=== PATIENT | female | born 1980 | race Caucasian/White ===

== ENCOUNTER 2018-01-21 09:55 | Day surgery (SDC) | payer BC ==
[~2018-01-21] VITALS: Ht 157.5 cm; Wt 70.3 kg
[~2018-01-21 09:55] MED LIST: FLEXERIL 1010 MG/TAB PO; MOTRIN 600600 MG/TAB PO; PERCOCET 325 MG1 TA2 PO; PREDNISONE20 MG PO; PRENATAL MVI PO; TUMS E-X750 MG PO
[2018-01-21 10:14] VITALS: BP 112/62; PULSE 71; TEMP 98.3
[2018-01-21] MEDS ORDERED: PROBIOTIC FORMU1 CAP PO (10:19)
[2018-01-21 11:45] VITALS: BP 97/56; PULSE 85
[2018-01-21 12:00] VITALS: BP 94/61; PULSE 69
[2018-01-21 12:15] VITALS: BP 99/58; PULSE 78
[2018-01-21 13:09] VITALS: BP 94/48; PULSE 80
== END 2018-01-21 12:25 | disposition home or self-care (01) ==
LOC: SDCO 09:55
DX: Z12.11 Encounter for screening for malignant neoplasm of colon (principal); R19.7 Diarrhea, unspecified; K21.9 Gastro-esophageal reflux disease without esophagitis; Z80.0 Family history of malignant neoplasm of digestive organs
CPT/HCPCS: J2250; J3010; J7030

== ENCOUNTER → 2019-10-04 | Outpatient (CLI) | payer BC ==
[~2019-10-04] MED LIST changes: +PROBIOTIC FORMU1 CAP PO
== END ==
LOC: MC.RAD 13:48
DX: N64.4 Mastodynia (principal)
CPT/HCPCS: G0279

== ENCOUNTER → 2020-10-31 | Outpatient (CLI) | payer BC | LOC: MC.RAD 15:50 | DX: Z12.31 Encounter for screening mammogram for malignant neoplasm of breast (principal) ==

== ENCOUNTER → 2021-11-28 | Outpatient (CLI) | payer BC | LOC: MC.RAD 13:54 | DX: Z12.31 Encounter for screening mammogram for malignant neoplasm of breast (principal) ==

== ENCOUNTER → 2024-03-17 | Outpatient (CLI) | payer OTHER ==
[~2024-03-17] MED LIST changes: +QUERCETIN500 M1 PO; +VITAMIN B COMPL1 SGL PO; +VITAMIN D31000 I1 PO; +VITAMINC1000TA PO; +ZYRTEC 10MG10 MG PO
== END ==
LOC: MC.RAD 13:00
DX: Z12.31 Encounter for screening mammogram for malignant neoplasm of breast (principal)